=== PATIENT | male | born 1950 | race Caucasian/White ===

== ENCOUNTER 2018-09-29 05:22 | Emergency (ER) | payer BC, MEDICARE ==
[2018-09-29 05:32] VITALS: BP 132/98
[2018-09-29] MEDS ORDERED: Ondansetron 4 MG/2 ML SDV IVPUSH ONE (05:37)
[2018-09-29] MEDS ORDERED: Ketorolac 30 MG/ML SDV IVPUSH ONE (05:37)
[2018-09-29] MEDS ORDERED: HYDROmorphone 1 MG/ML Syringe IVPUSH ONE (05:37)
[2018-09-29] MEDS ORDERED: Sodium Chloride 0.9% 1,000 ML IV SCH (05:45)
--- NOTE | 2018-09-29 05:47 | EDM.PDOC ---
ED HPI GENERAL MEDICAL PROBLEM - General Chief Complaint: Flank Pain Stated Complaint: FLANK PAIN/VOMITING Time Seen by Provider: 09/29/18 05:27 Source of Information: Reports: Patient, Family History Limitations: Reports: No Limitations - History of Present Illness INITIAL COMMENTS - FREE TEXT/NARRATIVE: This is a 68-year-old male. He went to bed last night around 9 PM awoke around 10 PM with right flank pain radiating to the right lower quadrant with nausea and vomiting and sweating. He had multiple episodes of nausea and vomiting and sweating secondary to pain. He finally comes this morning for evaluation. He didn't has no history of kidney stones and he still has his appendix. He says the pain is in the flank and seems to go into the right lower quadrant area. He's had no fever no chills no cough no congestion. He denies any urinary symptoms and he has had no diarrhea. Right Flank Pain Score (Numeric/FACES): 10 - Related Data Allergies Allergy/AdvReac Type Severity Reaction Status Date / Time No Known Allergies Allergy Verified 09/29/18 05:29 Home Meds: Home Meds Acetaminophen/oxyCODONE [Percocet 325-5 MG] 1 each PO Q4H PRN #12 tab 09/29/18 [ Rx] Finasteride [Proscar] 5 mg PO DAILY 09/29/18 [History] Ondansetron [Zofran] 4 mg PO Q6H PRN #12 tab 09/29/18 [Rx] Past Medical History - Past Health History Medical/Surgical History: Denies Medical/Surgical History Gastrointestinal History: Reports: GERD Genitourinary History: Reports: Prostate Disorder Musculoskeletal History: Reports: Fracture, Other (See Below) Other Musculoskeletal History: Dislocation right elbow in past, fractured ribs Social & Family History - Family History Family Medical History: Noncontributory - Tobacco Use Smoking Status *Q: Never Smoker ED ROS GENERAL - Review of Systems Review Of Systems: See Below Constitutional: Denies: Fever, Chills HEENT: Reports: No Symptoms Respiratory: Reports: No Symptoms Cardiovascular: Reports: No Symptoms Endocrine: Reports: No Symptoms GI/Abdominal: Reports: Abdominal Pain, Nausea, Vomiting. Denies: Diarrhea : Reports: Flank Pain. Denies: Discharge, Dysuria Musculoskeletal: Reports: No Symptoms, Back Pain Skin: Reports: No Symptoms Neurological: Reports: No Symptoms Psychiatric: Reports: No Symptoms Hematologic/Lymphatic: Reports: No Symptoms ED EXAM, GI/ABD - Physical Exam Exam: See Below Exam Limited By: No Limitations General Appearance: Alert, WD/WN, Mild Distress Eyes: Bilateral: Normal Appearance Ears: Normal External Exam Nose: Normal Inspection Throat/Mouth: Normal Inspection, Normal Lips, Normal Voice, No Airway Compromise Head: Normocephalic Neck: Supple Respiratory/Chest: No Respiratory Distress, Lungs Clear, Normal Breath Sounds Cardiovascular: Regular Rate, Rhythm, No Murmur GI/Abdominal Exam: Soft, Other (He has tenderness in the right flank on palpation but no rebound, he has some mild soreness in the right lower quadrant but no rebound. The left abdomen is nontender on palpation and bowel sounds are quiet) Back Exam: Full Range of Motion Extremities: Normal Inspection, Normal Range of Motion Neurological: Alert, Oriented Psychiatric: Normal Affect, Normal Mood Skin Exam: Warm, Dry. No: Diaphoretic Course - Vital Signs Last Recorded V/S: Last Vital Signs Temp 96.8 F 09/29/18 05:29 Pulse 88 09/29/18 05:29 Resp 18 09/29/18 05:29 BP 132/98 H 09/29/18 05:29 Pulse Ox 18 L 09/29/18 05:29 - Orders/Labs/Meds Orders: Active Orders 24 hr Category Date Time Status Abdomen Pelvis wo Cont [CT] Stat Exams 09/29/18 05:43 Taken Sodium Chloride 0.9% [Normal Saline] 1,000 ml Med 09/29/18 05:45 Active IV ASDIRECTED Medication Orders Sodium Chloride (Normal Saline) 1,000 mls @ 1,000 mls/hr IV ASDIRECTED RACHID Last Admin: 09/29/18 06:03 Dose: 1,000 mls/hr Labs: Laboratory Tests 09/29/18 09/29/18 09/29/18 Range/Units 05:30 05:30 06:36 WBC 13.34 H (4.23-9.07) K/mm3 RBC 5.09 (4.63-6.08) M/mm3 Hgb 15.9 (13.7-17.5) gm/L Hct 47.8 (40.1-51.0) % MCV 93.9 H (79.0-92.2) fl MCH 31.2 (25.7-32.2) pg MCHC 33.3 (32.2-35.5) g/dl RDW Std Deviation 45.2 H (35.1-43.9) fL Plt Count 192 (163-337) K/mm3 MPV 9.0 L (9.4-12.3) fl Neut % (Auto) 84.2 H (34.0-67.9) % Lymph % (Auto) 9.1 L (21.8-53.1) % Morris % (Auto) 5.7 (5.3-12.2) % Eos % (Auto) 0.4 L (0.8-7.0) Baso % (Auto) 0.3 (0.1-1.2) % Neut # (Auto) 11.23 H (1.78-5.38) K/mm3 Lymph # (Auto) 1.21 L (1.32-3.57) K/mm3 Morris # (Auto) 0.76 (0.30-0.82) K/mm3 Eos # (Auto) 0.06 (0.04-0.54) K/mm3 Baso # (Auto) 0.04 (0.01-0.08) K/mm3 Manual Slide Review Abnormal smear Sodium 142 (136-145) mEq/L Potassium 3.8 (3.5-5.1) mEq/L Chloride 105 (98-107) mEq/L Carbon Dioxide 25 (21-32) mEq/L Anion Gap 15.8 H (5-15) BUN 19 H (7-18) mg/dL Creatinine 1.2 (0.7-1.3) mg/dL Est Cr Clr Drug Dosing TNP Estimated GFR (MDRD) > 60 (>60) mL/min BUN/Creatinine Ratio 15.8 (14-18) Glucose 155 H (80-115) mg/dL Calcium 9.0 (8.5-10.1) mg/dL Total Bilirubin 0.8 (0.2-1.0) mg/dL AST 21 (15-37) U/L ALT 31 (16-63) U/L Alkaline Phosphatase 61 (46-116) U/L Total Protein 7.4 (6.4-8.2) g/dl Albumin 4.3 (3.4-5.0) g/dl Globulin 3.1 gm/dL Albumin/Globulin Ratio 1.4 (1-2) Urine Color Yellow (Yellow) Urine Appearance Slt cloudy H (Clear) Urine pH 6.0 (5.0-8.0) Ur Specific [place] 1.025 (1.005-1.030) Urine Protein 1+ H (Negative) Urine Glucose (UA) Negative (Negative) Urine Ketones Negative (Negative) Urine Occult Blood 2+ H (Negative) Urine Nitrite Negative (Negative) Urine Bilirubin Negative (Negative) Urine Urobilinogen 0.2 (0.2-1.0) Ur Leukocyte Esterase Negative (Negative) Urine RBC Not seen (0-5) /hpf Urine WBC Not seen (0-5) /hpf Ur Epithelial Cells Not seen (0-5) /hpf Urine Bacteria Not seen (FEW) /hpf Urine Mucus Not seen (FEW) /hpf Meds: Medications Generic Name Dose Route Start Last Admin Trade Name Freq PRN Reason Stop Dose Admin Sodium Chloride 1,000 mls @ 1,000 mls/hr 09/29/18 05:45 09/29/18 06:03 Normal Saline IV 1,000 mls/hr ASDIRECTED RACHID Administration Discontinued Medications Generic Name Dose Route Start Last Admin Trade Name Freq PRN Reason Stop Dose Admin Hydromorphone HCl 0.5 mg 09/29/18 05:37 09/29/18 05:45 Dilaudid IVPUSH 09/29/18 05:38 0.5 mg ONETIME ONE Administration Ketorolac Tromethamine 30 mg 09/29/18 05:37 09/29/18 05:45 Toradol IVPUSH 09/29/18 05:38 30 mg ONETIME ONE Administration Ondansetron HCl 4 mg 09/29/18 05:37 09/29/18 05:45 Zofran IVPUSH 09/29/18 05:38 4 mg ONETIME ONE Administration - Radiology Interpretation Free Text/Narrative:: CT scan shows a 5 mm calculus mid right ureter some right-sided hydronephrosis. He does have a nonobstructing calculi seen in the right kidney as well. There is a suggestion of some cysts in his left kidney and the radiologist felt like a CT scan might be beneficial as a follow-up. - Re-Assessments/Exams Free Text/Narrative Re-Assessment/Exam: 09/29/18 07:09 I spoke to the patient and his regarding the CT scan results. That he has a 50-50 chance of passing the kidney stone and he needs to drink lots of fluids when he gets home. I also said he needs to follow-up with his family doctor since he has some possible cysts in his left kidney that need to be reassessed. I'll send him home with something for nausea and pain and he knows that if they don't seem to help ease to return to the ER or if he runs a fever greater than 102 return to the ER. Departure - Departure Time of Disposition: 07:10 Disposition: Home, Self-Care 01 Condition: Good Clinical Impression: Right nephrolithiasis, Renal colic on right side Nausea and vomiting Qualifiers: Vomiting type: unspecified Vomiting Intractability: non-intractable Qualified Code(s): R11.2 - Nausea with vomiting, unspecified - Discharge Information *PRESCRIPTION DRUG MONITORING PROGRAM REVIEWED*: Not Applicable *COPY OF PRESCRIPTION DRUG MONITORING REPORT IN PATIENT ZO: Not Applicable Prescriptions: Acetaminophen/oxyCODONE [Percocet 325-5 MG] 1 each PO Q4H PRN #12 tab PRN Reason: Pain Ondansetron [Zofran] 4 mg PO Q6H PRN #12 tab PRN Reason: Nausea Instructions: Kidney Stones, [id number] Referrals: PCP,None [Primary Care Provider] - Forms: ED Department Discharge Additional Instructions: Strain your urine when you go to the bathroom for the kidney stone, drink lots of fluids, take the medicines for pain and nausea as needed, if the medications do not seem to help return to the ER, be certain to follow-up with a primary care provider to make certain that the kidney stone does pass and also for a recheck of the cysts in his left kidney, if he runs a fever greater than 102 return to the ER immediately. - My Orders Last 24 Hours: My Active Orders 09/29/18 05:43 Abdomen Pelvis wo Cont [CT] Stat 09/29/18 05:45 Sodium Chloride 0.9% [Normal Saline] 1,000 ml IV ASDIRECTED - Assessment/Plan Last 24 Hours: My Active Orders 09/29/18 05:43 Abdomen Pelvis wo Cont [CT] Stat 09/29/18 05:45 Sodium Chloride 0.9% [Normal Saline] 1,000 ml IV ASDIRECTED
--- NOTE | 2018-09-29 11:37 | CT ---
CT abdomen and pelvis Technique: Multiple axial sections were obtained from above the dome of the diaphragm inferiorly through the pubic symphysis. Intravenous and oral contrast not utilized. Study has been performed as a ureteral stone protocol. Comparison: No prior abdominal imaging. Findings: Right kidney is swollen with surrounding inflammatory change. Right-sided hydronephrosis is noted. Proximal right ureter is dilated. Findings are caused by an obstructing stone within the mid right ureter measuring approximately 4.5 mm. Two small nonobstructing calculi are seen within the right kidney with largest nonobstructing stone measuring approximately 5.2 mm. Left kidney shows no abnormal calcifications. Small low density finding is noted within each kidney with Hounsfield unit measurements of cysts measuring 1.7 cm on the right side side and 1.3 cm on the left side. Visualized lung bases show nothing acute. Noncontrast appearance of the liver shows no focal abnormality. Spleen appears within normal limits. Adrenal glands show no nodule. Pancreas is within normal limits. Gallbladder contains no calcified gallstones. Aorta shows atherosclerotic calcification which continues into the iliac vessels. No retroperitoneal adenopathy or mesenteric abnormalities are seen. Appendix is seen which is normal in size. Mild sigmoid diverticulosis is seen without diverticulitis. Prostate gland is mildly enlarged. Slight degenerative change scattered within the spine. Impression: 1. Inflammatory change around the right kidney with right-sided hydronephrosis. These findings are caused by an obstructing stone within the mid right ureter measuring approximately 4.5 mm. 2. Small abnormality within each kidney having Hounsfield unit measurement of cysts with measurements as noted above. Two nonobstructing small calculi within the right kidney. 3. Other incidental findings as noted above. Diagnostic code #3 I agree with preliminary report from [facility], finalized on 09/29/18, 8:02 AM Central Time
== END 2018-09-29 07:23 | disposition home or self-care (01) ==
LOC: JD.ED 05:22
DX: N13.2 Hydronephrosis with renal and ureteral calculous obstruction (principal); R11.2 Nausea with vomiting, unspecified
CPT/HCPCS: 36415; 74176; 80053; 81001; 85025; 96361; 96374; 96375; 99284; J1170; J1885; J2405; J7040

== ENCOUNTER 2019-04-18 12:23 | Emergency (ER) | payer MEDICARE, BC ==
[2019-04-18 12:40] VITALS: BP 123/80
--- NOTE | 2019-04-18 13:26 | EDM.PDOC ---
ED HPI GENERAL MEDICAL PROBLEM - General Chief Complaint: Gastrointestinal Problem Stated Complaint: FLU X 2DAYS,DIARRHEA Time Seen by Provider: 04/18/19 12:41 Source of Information: Reports: Patient History Limitations: Reports: No Limitations - History of Present Illness INITIAL COMMENTS - FREE TEXT/NARRATIVE: 68-year-old male presents for evaluation and treatment of hemorrhoids. Patient reports that he was ill last week Monday with flu. States that he had flu symptoms for 2-1/2 days. He then ate bland foods following this a he then developed diarrhea for 2 days. He states now that he is vomiting, diarrhea and abdominal discomfort has completely resolved. However, he is now developed complications from internal hemorrhoids. He states that he cannot stand due to pressure. He is able to lie flat with his legs elevated but otherwise has significant pain. He has been using hemorrhoid suppositories, creams, doing sitz bath, Tylenol he continues to have significant pain. He denies any abdominal pain. He did have some bright red blood on the toilet tissue earlier but none recently. He reports a snapping sensation in his rectal sphincter with bowel movements. He has had external hemorrhoids in the past but does not feel that this is what causing his symptoms today. He reports that he had a bowel movement this morning the symptoms really aggravates the hemorrhoids again. He has never had a colonoscopy. Primary care provider is Kathe Phelps. Rectal Pain Score (Numeric/FACES): 9 - Related Data Allergies Allergy/AdvReac Type Severity Reaction Status Date / Time No Known Allergies Allergy Verified 09/29/18 05:29 Home Meds: Home Meds Finasteride [Proscar] 5 mg PO DAILY 09/29/18 [History] Ondansetron [Zofran ODT] 4 mg PO Q6H PRN #20 tab.dis 04/18/19 [Rx] Tadalafil [Cialis] 10 mg PO ASDIRECTED 04/18/19 [History] Past Medical History - Past Health History Medical/Surgical History: Denies Medical/Surgical History Gastrointestinal History: Reports: GERD Genitourinary History: Reports: Prostate Disorder Musculoskeletal History: Reports: Fracture, Other (See Below) Other Musculoskeletal History: Dislocation right elbow in past, fractured ribs Social & Family History - Family History Family Medical History: Noncontributory - Tobacco Use Smoking Status *Q: Current Every Day Smoker Years of Tobacco use: 30 Packs/Tins Daily: 0.1 - Caffeine Use Caffeine Use: Reports: Tea - Recreational Drug Use Recreational Drug Use: Yes Recreational Drug Type: Reports: Marijuana/Hashish Other Recreational Drug Type: every other day ED ROS GENERAL - Review of Systems Review Of Systems: See Below Constitutional: Denies: Fever, Chills GI/Abdominal: Reports: Other (Reports rectal pain). Denies: Abdominal Pain, Diarrhea, Hematochezia (None recently but has had some in the past), Nausea, Vomiting ED EXAM, GI/ABD - Physical Exam Exam: See Below Exam Limited By: No Limitations General Appearance: Alert, WD/WN, No Apparent Distress Respiratory/Chest: No Respiratory Distress, Lungs Clear, Normal Breath Sounds Cardiovascular: Normal Peripheral Pulses, Regular Rate, Rhythm, No Murmur GI/Abdominal Exam: Normal Bowel Sounds, Soft, Non-Tender Rectal (Males) Exam: Normal Exam, Normal Rectal Tone, Heme - Stool. No: Hemorrhoids (Skin take from old external hemorrhoid appreciated. Pain at the 6 o 'clock position likely from internal hemorrhoids however also be an anal fissure. But felt more likely to be from internal hemorrhoids), Perirectal Abscess Neurological: Alert, Oriented, Normal Cognition Psychiatric: Normal Affect, Normal Mood Skin Exam: Warm, Dry, Normal Color Course - Vital Signs Last Recorded V/S: Last Vital Signs Temp 97.6 F 04/18/19 12:37 Pulse 80 04/18/19 12:37 Resp 20 04/18/19 12:37 BP 123/80 04/18/19 12:37 Pulse Ox 96 04/18/19 12:37 Departure - Departure Time of Disposition: 13:24 Disposition: Home, Self-Care 01 Condition: Fair Clinical Impression: Internal hemorrhoids - Discharge Information *PRESCRIPTION DRUG MONITORING PROGRAM REVIEWED*: No *COPY OF PRESCRIPTION DRUG MONITORING REPORT IN PATIENT ZO: No Prescriptions: Ondansetron [Zofran ODT] 4 mg PO Q6H PRN #20 tab.dis PRN Reason: Nausea Instructions: Hemorrhoids, [id number] Referrals: PCP,None [Ordering Only Provider] - Lucille Bucio MD [Physician] - Forms: ED Department Discharge Additional Instructions: Prescription for rectal rockets 1 at hour sleep written #20. Take the prescription to [facility] in [facility]. They will specially compounded these medications for you. May take OTC tylenol or motrin as needed for pain. May take the hydrocodone you have at home for more severe pain. Recommend taking this with food to avoid nausea. may take with zofran 1 tab sublingual eery 6 hours prior to the hydrocodone for nausea. Drink plenty of fluids. Recommend soft, easily passable bowel movements. May purchase miralax, available OTC to help achieve this. Continue with Sitz baths. Follow-up with surgery if not better. May need to have these banded or may need a scope to further evaluate. Recommend Dr. Rodrigez at [facility]. Call [phone] to schedule with her. Please return to the ER should your symptoms change or worsen.
== END 2019-04-18 13:37 | disposition home or self-care (01) ==
LOC: JD.ED 12:23
DX: K64.8 Other hemorrhoids (principal); F17.210 Nicotine dependence, cigarettes, uncomplicated; Z79.899 Other long term (current) drug therapy
CPT/HCPCS: 99283

== ENCOUNTER 2019-04-24 20:31 | Emergency (ER) | payer MEDICARE, BC ==
[2019-04-24 20:58] VITALS: BP 156/95
[2019-04-24] MEDS ORDERED: Metoclopramide 10 MG/2 ML SDV IVPUSH ONE (21:08)
[2019-04-24] MEDS ORDERED: Clindamycin Phosphate in D5W 900 MG in Premix Bag 1 BAG IV ONE ×2 (21:08)
[2019-04-24] MEDS ORDERED: HYDROmorphone 1 MG/ML Syringe IVPUSH ONE (21:08)
--- NOTE | 2019-04-24 21:09 | EDM.PDOC ---
ED HPI GENERAL MEDICAL PROBLEM - General Chief Complaint: General Stated Complaint: PAINFUL/SWOLLEN HEMOROIDS Time Seen by Provider: 04/24/19 20:55 Source of Information: Reports: Patient, Family History Limitations: Reports: No Limitations - History of Present Illness INITIAL COMMENTS - FREE TEXT/NARRATIVE: 68-year-old male presents to the ED due to development of fever chills and rigors starting about 3 hours ago. Patient has been having perirectal pain for about a week. It is felt that he has thrombosed internal hemorrhoids. He indicates that bowel movements are tolerable but after having a bowel movement he experiences an acute exacerbation of severe pain over a period of 10-15 minutes due to severe tenesmus or muscle spasm of the rectal sphincter. Thiis suggests that he may have a fistula in ano developing. He was at the clinic today and had to different rectal examinations but could not tolerate due to the pain. Decision made to explore the rectum under anesthesia tomorrow. Since getting home today he's developed onset of fever chills and mild nausea. Suggest an abscess was disturbed and he has developed bacteremia. He does feel warm to palpation. Nurses record temperature however 36.8. Pulse is 90. BP is elevated 156/98. Respiratory rate is 20 with O2 sats of 98%. Onset: Today Onset Date: 04/24/19 Onset Time: 17:15 Duration: Hour(s):, Constant, Other (Intermittent rigors chills.) Location: Reports: Other (Pain in the rectum. Presumably due to thrombosed internal hemorrhoids although pain is been gradually getting worse over a period of week in spite of active treatment.) Quality: Reports: Throbbing (Constant throbbing rectal pain that is worse since manual examination 2 today.), Other (Fever chills and rigors starting about 1715 hrs. today.) Severity: Severe Improves with: Reports: None (10 out of 10) Worsens with: Reports: None Context: Reports: Other (Perirectal pain syndrome for about a week.). Denies: Activity, Exercise, Lifting, Sick Contact, Trauma Associated Symptoms: Reports: Fever/Chills, Loss of Appetite, Malaise, Nausea/ Vomiting. Denies: Confusion, Chest Pain, Cough, cough w sputum, Diaphoresis, Headaches, Rash, Seizure, Shortness of Breath (Mild nausea with no vomiting), Syncope Treatments MANAGER EDUCATIONAL: Reports: NSAIDS (Motrin.) Rectal Pain Score (Numeric/FACES): 10 - Related Data Allergies Allergy/AdvReac Type Severity Reaction Status Date / Time No Known Allergies Allergy Verified 04/24/19 20:34 Home Meds: Home Meds Finasteride [Proscar] 5 mg PO DAILY 09/29/18 [History] Ondansetron [Zofran ODT] 4 mg PO Q6H PRN #20 tab.dis 04/18/19 [Rx] Tadalafil [Cialis] 10 mg PO ASDIRECTED 04/18/19 [History] Clindamycin HCl 300 mg PO TID #21 capsule 04/24/19 [Rx] oxyCODONE HCl/Acetaminophen [Percocet 5-325 mg Tablet] 1 - 2 each PO Q4H PRN # 20 tablet 04/24/19 [Rx] Past Medical History - Past Health History Medical/Surgical History: Denies Medical/Surgical History Gastrointestinal History: Reports: GERD Genitourinary History: Reports: Prostate Disorder Musculoskeletal History: Reports: Fracture, Other (See Below) Other Musculoskeletal History: Dislocation right elbow in past, fractured ribs Social & Family History - Family History Family Medical History: Noncontributory - Caffeine Use Caffeine Use: Reports: Tea - Living Situation & Occupation Living situation: Reports: Occupation: Employed (Self-employed) ED ROS GENERAL - Review of Systems Review Of Systems: See Below Constitutional: Reports: Fever, Chills, Malaise, Fatigue, Decreased Appetite HEENT: Reports: Glasses Respiratory: Reports: No Symptoms Cardiovascular: Reports: No Symptoms Endocrine: Reports: No Symptoms GI/Abdominal: Reports: Nausea (Mild nausea.). Denies: Abdominal Pain : Reports: Other (States she's not having any problems voiding. He has a history of erectile dysfunction.) Musculoskeletal: Reports: No Symptoms Skin: Reports: Other (States she did develop "goose pimples" for a while today when he was so chilled.) Psychiatric: Reports: Anxiety Hematologic/Lymphatic: Reports: No Symptoms Immunologic: Reports: No Symptoms ED EXAM, GENERAL - Physical Exam Exam: See Below Exam Limited By: No Limitations General Appearance: Alert, WD/WN, Anxious, Other (He does feel warm to palpation much warmer than nurses recording of temperature.) Throat/Mouth: Normal Inspection, Normal Lips, Normal Oropharynx Head: Atraumatic, Normocephalic Neck: Normal Inspection, Supple, Non-Tender, Full Range of Motion. No: Lymphadenopathy (L), Lymphadenopathy (R) Respiratory/Chest: No Respiratory Distress, Lungs Clear, Normal Breath Sounds, No Accessory Muscle Use, Respiratory Distress Cardiovascular: Normal Peripheral Pulses (Mild tachypnea.), Regular Rate, Rhythm , No Edema, No Gallop, No Murmur, No Rub GI/Abdominal: Normal Bowel Sounds, Soft, Non-Tender, No Organomegaly, No Abnormal Bruit, No Mass, Pelvis Stable Rectal (Males) Exam: Other (External anus is normal. I did not proceed with internal rectal exam as patient has had 2 exams earlier today) Extremities: Normal Inspection, Normal Range of Motion, Non-Tender Neurological: Alert, Oriented, CN II-XII Intact, Normal Cognition. No: Normal Gait Psychiatric: Anxious Skin Exam: Warm, Dry, Intact, Normal Color, No Rash Course - Vital Signs Last Recorded V/S: Last Vital Signs Temp 36.8 C 04/24/19 20:56 Pulse 90 04/24/19 20:56 Resp 20 04/24/19 20:56 BP 156/95 H 04/24/19 20:56 Pulse Ox 98 04/24/19 20:56 - Orders/Labs/Meds Orders: Active Orders 24 hr Category Date Time Status CULTURE BLOOD [BC] Stat Lab 04/24/19 21:17 Received CULTURE BLOOD [BC] Stat Lab 04/24/19 21:25 Received Dextrose 5%-0.9% NaCl [Dextrose 5%-Normal Saline] 1,000 Med 04/24/19 21:15 Active ml IV ASDIRECTED Blood Culture x2 Reflex Set [OM.PC] Stat Oth 04/24/19 21:07 Ordered Medication Orders Dextrose/Sodium Chloride (Dextrose 5%-Normal Saline) 1,000 mls @ 500 mls/hr IV ASDIRECTED RACHID Last Admin: 04/24/19 21:20 Dose: 500 mls/hr Labs: Laboratory Tests 04/24/19 04/24/19 04/24/19 Range/Units 21:17 21:17 21:17 WBC 11.51 H (4.23-9.07) K/mm3 RBC 4.66 (4.63-6.08) M/mm3 Hgb 14.7 (13.7-17.5) gm/L Hct 43.3 (40.1-51.0) % MCV 92.9 H (79.0-92.2) fl MCH 31.5 (25.7-32.2) pg MCHC 33.9 (32.2-35.5) g/dl RDW Std Deviation 43.9 (35.1-43.9) fL Plt Count 264 (163-337) K/mm3 MPV 8.4 L (9.4-12.3) fl Neutrophils % (Manual) 85 H (40-60) % Band Neutrophils % 0 (0-10) % Lymphocytes % (Manual) 8 L (20-40) % Atypical Lymphs % 0 % Monocytes % (Manual) 6 (2-10) % Eosinophils % (Manual) 1 (0.8-7.0) % Basophils % (Manual) 0 L (0.2-1.2) Platelet Estimate Adequate RBC Morph Comment Normal Sodium 140 (136-145) mEq/L Potassium 3.8 (3.5-5.1) mEq/L Chloride 105 (98-107) mEq/L Carbon Dioxide 23 (21-32) mEq/L Anion Gap 15.8 H (5-15) BUN 14 (7-18) mg/dL Creatinine 1.0 (0.7-1.3) mg/dL Est Cr Clr Drug Dosing 78.68 mL/min Estimated GFR (MDRD) > 60 (>60) mL/min BUN/Creatinine Ratio 14.0 (14-18) Glucose 143 H (80-115) mg/dL Lactic Acid 0.8 (0.4-2.0) mmol/L Calcium 9.1 (8.5-10.1) mg/dL Total Bilirubin 1.4 H (0.2-1.0) mg/dL AST 16 (15-37) U/L ALT 24 (16-63) U/L Alkaline Phosphatase 52 (46-116) U/L C-Reactive Protein < 0.2 (<1.0) mg/dL Total Protein 7.1 (6.4-8.2) g/dl Albumin 4.0 (3.4-5.0) g/dl Globulin 3.1 gm/dL Albumin/Globulin Ratio 1.3 (1-2) Meds: Medications Generic Name Dose Route Start Last Admin Trade Name Freq PRN Reason Stop Dose Admin Dextrose/Sodium Chloride 1,000 mls @ 500 mls/hr 04/24/19 21:15 04/24/19 21:20 Dextrose 5%-Normal Saline IV 500 mls/hr ASDIRECTED RACHID Administration Discontinued Medications Generic Name Dose Route Start Last Admin Trade Name Alce PRN Reason Stop Dose Admin Hydromorphone HCl 1 mg 04/24/19 21:08 04/24/19 21:22 Dilaudid IVPUSH 04/24/19 21:09 1 mg ONETIME ONE Administration Clindamycin Phosphate 900 mg/ 50 mls @ 100 mls/hr 04/24/19 21:08 04/24/19 21: 25 Premix IV 04/24/19 21:37 100 mls/hr ONETIME ONE Administration Metoclopramide HCl 10 mg 04/24/19 21:08 04/24/19 21:21 Reglan IVPUSH 04/24/19 21:09 10 mg ONETIME ONE Administration - Radiology Interpretation Free Text/Narrative:: 68-year-old male presents to the ED today with sudden onset of fever chills and rigors starting about 1715 hrs. today. Reports she's been having problems with perirectal pain for about a week or more. Is felt this is secondary to thrombosed internal hemorrhoids although is never had any prolapse of hemorrhoids recently. It's after bowel movement he experiences severe tenesmus oral rectal sphincter spasm has been gradually getting worse . Over the last week. He was seen in the clinic today by both his primary care physician and surgeon and had 2 rectal exams. He states this was exquisitely tender and he would not able to complete the exam due to the pain syndrome. Therefore he is booked for examination under anesthesia tomorrow to explore the rectum. It was felt that if he had thrombosed internal hemorrhoids that he would benefit from banding procedure however the history of development of fever chills and rigors today suggests he has probably a fistula and ano--in the exam today created bacteremia. Landed he will have IV of D5 normal saline at 500 mils per hour. Given Dilaudid 1 mg IV and Reglan 10 mg IV for pain and nausea relief. Will give him clindamycin 900 mg intravenously. He will have routine labs including blood cultures 2 and CRP. - Re-Assessments/Exams Free Text/Narrative Re-Assessment/Exam: 04/24/19 22:02 Labs reveal a mildly elevated white count of 11.51. Differential shows 85% neutrophils but no bands. Hemoglobin is 14.7 with hematocrit of 43.3. MCV is slightly elevated at 92.9. Platelet count 264,000. 04/24/19 23:05 Chemistry is back shows a sodium of 140 potassium 3.8. Toward 105 with a bicarbonate of 23. Anion gap is 15.8. BUNs 14 with a creatinine of 1.0. GFR is greater than 60. Glucose is 143. Lactic acid is 0.8. Calcium was 9.1. Bilirubin mildly elevated at 1.4 AST 16 with an ALT of 24. Alkaline phosphatase is 52. 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 C-reactive protein is less than 0.2. Total protein is 7.1 within a beam fraction of 4.0. Departure - Departure Time of Disposition: 23:06 Disposition: Home, Self-Care 01 Condition: Fair Clinical Impression: Abscess of anal or rectal region, Internal hemorrhoids with complication, [id number] - Discharge Information *PRESCRIPTION DRUG MONITORING PROGRAM REVIEWED*: Not Applicable *COPY OF PRESCRIPTION DRUG MONITORING REPORT IN PATIENT ZO: Not Applicable Prescriptions: Clindamycin HCl 300 mg PO TID #21 capsule oxyCODONE HCl/Acetaminophen [Percocet 5-325 mg Tablet] 1 - 2 each PO Q4H PRN # 20 tablet PRN Reason: pain relief. Instructions: Hemorrhoids, [id number], Perirectal Abscess Referrals: PCP,None [Ordering Only Provider] - Forms: ED Department Discharge Additional Instructions: Evaluation the emergency room tonight in regards to development of increased rectal pain after rectal exam 2 today. Pain in the rectal area for over a week. Working diagnosis is thrombosed internal hemorrhoids. However tonight she developed evidence of bacteria entering your blood stream which we call bacteremia which produced fever and chills. Therefore treated with intravenous antibiotic clindamycin 900 mg. You're given medicine for nausea and pain relief. At home is pain medicine Percocet 5/325 mg one or 2 every 4-6 hours as needed for pain relief. Clindamycin tablets to be taken 300 mg 3 times daily for the next 7 days. Hopefully he will still be able to have your examination under anesthesia tomorrow. 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 - My Orders Last 24 Hours: My Active Orders 04/24/19 21:07 Blood Culture x2 Reflex Set [OM.PC] Stat 04/24/19 21:15 Dextrose 5%-0.9% NaCl [Dextrose 5%-Normal Saline] 1,000 ml IV ASDIRECTED 04/24/19 21:17 CULTURE BLOOD [BC] Stat 04/24/19 21:25 CULTURE BLOOD [BC] Stat - Assessment/Plan Last 24 Hours: My Active Orders 04/24/19 21:07 Blood Culture x2 Reflex Set [OM.PC] Stat 04/24/19 21:15 Dextrose 5%-0.9% NaCl [Dextrose 5%-Normal Saline] 1,000 ml IV ASDIRECTED 04/24/19 21:17 CULTURE BLOOD [BC] Stat 04/24/19 21:25 CULTURE BLOOD [BC] Stat
[2019-04-24] MEDS ORDERED: Dextrose 5%-0.9% NaCl 1,000 ML IV SCH (21:15)
== END 2019-04-24 23:32 | disposition home or self-care (01) ==
LOC: JD.ED 20:31
DX: K61.2 Anorectal abscess (principal); K64.8 Other hemorrhoids; N42.9 Disorder of prostate, unspecified; Z79.899 Other long term (current) drug therapy
CPT/HCPCS: 36415; 80053; 83605; 85007; 85027; 86140; 87040; 96361; 96365; 96375; 99283-25; J1170; J2765; J3490; J7042

== ENCOUNTER → 2024-09-12 | Day surgery (SDC) | payer MEDICARE, BC ==
[2024-09-12 08:43] VITALS: BP 157/90; PULSE 67
[2024-09-12] MEDS: Polymyxin B/Trimethoprim 10 ML Bottle EYELF SCH (08:44)
[2024-09-12] MEDS: Brimonidine 0.2% Ophth Soln 5 ML Bottle EYELF SCH (08:51)
[2024-09-12] MEDS: Phenylephrine 2.5% Ophth Soln 2 ML Bot EYELF SCH (08:53)
[2024-09-12] MEDS: Tetracaine HCl/PF 0.5% 4 ML Bottle EYEBOTH SCH (08:53)
[2024-09-12] MEDS: Lidocaine 1% PF 2 ML SDV INJECT SCH (08:53)
[2024-09-12] MEDS: Pilocarpine 4% Ophth Soln 15 ML Bot EYELF SCH (08:53)
[2024-09-12] MEDS: Cefuroxime 10 MG/ML SYRINGE EYELF SCH (08:53)
[2024-09-12] MEDS: Tropicamide 1% Ophth Soln 3 ML Bottle EYELF SCH (09:07)
== END ==
LOC: JD.SDS 08:30
PROVIDERS: ATTEND Ophthalmology
DX: H25.813 Combined forms of age-related cataract, bilateral (principal); K21.9 Gastro-esophageal reflux disease without esophagitis; N40.0 Benign prostatic hyperplasia without lower urinary tract symptoms; Z79.899 Other long term (current) drug therapy
CPT/HCPCS: 66984; A9270; J0697; J3490

== ENCOUNTER 2024-10-10 08:52 | Day surgery (SDC) | payer MEDICARE, BC ==
[2024-10-10] MEDS: Brimonidine 0.2% Ophth Soln 5 ML Bottle EYERT SCH (07:32)
[2024-10-10] MEDS: Polymyxin B/Trimethoprim 10 ML Bottle EYERT SCH (07:32)
[2024-10-10] MEDS: Phenylephrine 2.5% Ophth Soln 2 ML Bot EYERT SCH (07:32)
[2024-10-10] MEDS: Cefuroxime 10 MG/ML SYRINGE EYERT SCH (07:32)
[2024-10-10] MEDS: Tetracaine HCl/PF 0.5% 4 ML Bottle EYEBOTH SCH (07:32)
[2024-10-10] MEDS: Lidocaine 1% PF 2 ML SDV INJECT SCH (07:32)
[2024-10-10] MEDS: Pilocarpine 4% Ophth Soln 15 ML Bot EYERT SCH (07:33)
[2024-10-10 09:47] VITALS: BP 141/88; PULSE 78
[2024-10-10] MEDS: Tropicamide 1% Ophth Soln 3 ML Bottle EYERT SCH (09:55)
== END 2024-10-10 11:38 ==
LOC: JD.SDS 08:52
PROVIDERS: ATTEND Ophthalmology
DX: H25.811 Combined forms of age-related cataract, right eye (principal); H52.31 Anisometropia; N40.0 Benign prostatic hyperplasia without lower urinary tract symptoms; Z96.1 Presence of intraocular lens; Z79.899 Other long term (current) drug therapy; F17.200 Nicotine dependence, unspecified, uncomplicated
CPT/HCPCS: A9270-GY; J0697; J3490